=== PATIENT | female | born 1975 | race Caucasian/White ===

== ENCOUNTER 2021-04-13 10:09 | Emergency (ER) | payer SELFPAY ==
[2021-04-13] MEDS ORDERED: CEPHALEXIN500 M1 PO (12:49)
[2021-04-13] MEDS ORDERED: VIBRAMYCIN 100100 MG PO (12:49)
== END 2021-04-13 13:00 | disposition home or self-care (01) ==
LOC: ER1 10:09
DX: S40.261A Insect bite (nonvenomous) of right shoulder, initial encounter (principal); L03.113 Cellulitis of right upper limb; I10 Essential (primary) hypertension; Z88.0 Allergy status to penicillin; Z90.49 Acquired absence of other specified parts of digestive tract; X58.XXXA Exposure to other specified factors, initial encounter
CPT/HCPCS: 99283

== ENCOUNTER → 2021-08-04 | Outpatient (CLI) | payer BC ==
[~2021-08-04] MED LIST: CEPHALEXIN500 M1 PO; VIBRAMYCIN 100100 MG PO
[2021-08-04 10:12] LABS: HEMOGLOBIN 13.6 gm/dl (12.3-15.3); RED BLOOD COUNT 4.15 M/UL (4.00-5.10); WHITE BLOOD COUNT 3.5 K/UL (4.5-11.0)
[2021-08-04 10:34] LABS: BUN/CREATININE RATIO 17 (0-10)
== END ==
LOC: MAMO 07-23 10:00
PROVIDERS: Nurse Practitioner Family
DX: Z12.31 Encounter for screening mammogram for malignant neoplasm of breast (principal); Z13.220 Encounter for screening for lipoid disorders; Z13.29 Encounter for screening for other suspected endocrine disorder; C81.90 Hodgkin lymphoma, unspecified, unspecified site; R92.8 Other abnormal and inconclusive findings on diagnostic imaging of breast
CPT/HCPCS: 36415; 77063; 77067; 80053; 80061; 82607; 84439; 84443; 85025